=== PATIENT | male | born 1990 | race Caucasian/White ===

== ENCOUNTER 2018-03-29 16:45 | Emergency (ER) | payer OTHER ==
[~2018-03-29] VITALS: Ht 162.5 cm; Wt 51.3 kg
[~2018-03-29 16:45] MED LIST: ZOFRAN4 MG PO
[2018-03-29 17:24] LABS: BASO % 0.6 % (0.0-1.0); EOS # 0.2 10*3/uL (0.0-0.4); EOS % 4.3 % (1.0-4.0); HEMATOCRIT 41.9 % (42.0-52.0); HEMOGLOBIN 14.5 g/dl (14.0-18.0); LYMPH # 1.2 10*3/uL (1.3-4.4); LYMPH % 24.2 % (27.0-41.0); MEAN CELL VOLUME 86.2 fl (80.0-94.0); MEAN CORPUSCULAR HGB 29.8 pg (27.0-31.0); MEAN CORPUSCULAR HGB CONC 34.6 g/dl (33.0-37.0); MEAN PLATELET VOLUME 9.7 fl (9.6-12.3); MONO # 0.4 10*3/uL (0.1-1.0); MONO % 7.4 % (3.0-9.0); NEUT # 3.1 10*3/uL (2.3-7.9); NEUT % 63.3 % (47.0-73.0); PLATELET COUNT AUTOMATED 203 10*3/uL (130-400); RED BLOOD COUNT 4.86 10*6/uL (4.50-5.90); RED CELL DISTRI WIDTH 12.8 % (0-14.5); WHITE BLOOD COUNT 4.9 10*3/uL (4.8-10.8)
[2018-03-29 17:40] LABS: ALBUMIN 3.7 gm/dl (3.1-4.5); ALKALINE PHOSPHATASE 35 U/L (45-117); BUN 12 mg/dl (7-24); CHLORIDE 107 mmol/L (98-107); POTASSIUM 3.5 mmol/L (3.5-5.1); SGOT/AST 14 IU/L (3-35); SGPT/ALT 19 U/L (12-78); SODIUM 143 mmol/L (136-145); TOTAL PROTEIN 7.2 gm/dL (6.4-8.2)
== END 2018-03-29 18:51 | disposition home or self-care (01) ==
LOC: ED 16:45
PROVIDERS: Emergency Medicine
DX: B34.9 Viral infection, unspecified (principal); R73.9 Hyperglycemia, unspecified; Z88.1 Allergy status to other antibiotic agents

== ENCOUNTER 2018-07-04 18:04 | Emergency (ER) | payer SELFPAY ==
[~2018-07-04] VITALS: Ht 160 cm; Wt 47.2 kg
[2018-07-04] MEDS ORDERED: AUGMENTIN 875875 MG PO (18:59)
[2018-09-15] MEDS ORDERED: ROBAXIN500 M1 PO (19:39)
[2018-09-15] MEDS ORDERED: NAPROSYN500 MG PO (19:39)
== END 2018-07-04 19:04 | disposition home or self-care (01) ==
LOC: ED 18:04
DX: S61.210A Laceration without foreign body of right index finger without damage to nail, initial encounter (principal); F17.200 Nicotine dependence, unspecified, uncomplicated; Z88.1 Allergy status to other antibiotic agents; W26.0XXA Contact with knife, initial encounter; Y93.89 Activity, other specified; Y92.89 Other specified places as the place of occurrence of the external cause; Y99.8 Other external cause status

== ENCOUNTER 2018-07-22 11:23 | Emergency (ER) | payer SELFPAY ==
[~2018-07-22] VITALS: Ht 160 cm; Wt 46.7 kg
[~2018-07-22 11:23] MED LIST changes: +AUGMENTIN 875875 MG PO
[2018-07-22 12:20] LABS: BASO % 0.1 % (0.0-1.0); EOS # 0.1 10*3/uL (0.0-0.4); HEMATOCRIT 42.9 % (42.0-52.0); LYMPH # 0.6 10*3/uL (1.3-4.4); LYMPH % 8.5 % (27.0-41.0); MEAN CELL VOLUME 85.6 fl (80.0-94.0); MEAN CORPUSCULAR HGB 29.9 pg (27.0-31.0); MEAN PLATELET VOLUME 9.8 fl (9.6-12.3); MONO # 0.4 10*3/uL (0.1-1.0); MONO % 5.9 % (3.0-9.0); NEUT # 6.2 10*3/uL (2.3-7.9); NEUT % 84.2 % (47.0-73.0); PLATELET COUNT AUTOMATED 202 10*3/uL (130-400); RED BLOOD COUNT 5.01 10*6/uL (4.50-5.90); RED CELL DISTRI WIDTH 13.1 % (0-14.5); WHITE BLOOD COUNT 7.3 10*3/uL (4.8-10.8)
[2018-07-22 12:37] LABS: ALBUMIN 3.9 gm/dl (3.1-4.5); ALKALINE PHOSPHATASE 40 U/L (45-117); BUN 11 mg/dl (7-24); CHLORIDE 107 mmol/L (98-107); CREATININE 1.01 mg/dL (0.70-1.30); LIPASE 92 U/L (73-393); POTASSIUM 3.5 mmol/L (3.5-5.1); SGOT/AST 12 IU/L (3-35); SGPT/ALT 21 U/L (12-78); SODIUM 140 mmol/L (136-145); TOTAL PROTEIN 7.2 gm/dL (6.4-8.2)
[2018-07-22 12:39] LABS: BILIRUBIN NEGATIVE (NEGATIVE); BLOOD NEGATIVE (NEGATIVE); CLARITY CLOUDY (CLEAR); COLOR YELLOW (YELLOW); GLUCOSE NEGATIVE (NEGATIVE); KETONE NEGATIVE (NEGATIVE); LEUKO ESTERASE NEGATIVE (NEGATIVE); NITRITE NEGATIVE (NEGATIVE); PH 6.5 (5.0-9.0); SPECIFIC GRAVITY 1.025 (1.005-1.030)
[2018-07-22 12:54] LABS: BACTERIA 2+; MUCOUS 3+
[2018-07-22] MEDS ORDERED: PHENERGAN25 M3 PO (13:48)
[2018-09-15] MEDS ORDERED: ROBAXIN500 M1 PO (19:39)
[2018-09-15] MEDS ORDERED: NAPROSYN500 MG PO (19:39)
== END 2018-07-22 13:59 | disposition home or self-care (01) ==
LOC: ED 11:23
PROVIDERS: Emergency Medicine
DX: K52.9 Noninfective gastroenteritis and colitis, unspecified (principal); M79.18 Myalgia, other site; F17.200 Nicotine dependence, unspecified, uncomplicated; Z88.1 Allergy status to other antibiotic agents; Z79.2 Long term (current) use of antibiotics

== ENCOUNTER 2018-07-23 11:51 | Emergency (ER) | payer SELFPAY ==
[~2018-07-23] VITALS: Ht 152.4 cm; Wt 46.7 kg
[~2018-07-23 11:51] MED LIST changes: +PHENERGAN25 M3 PO
[2018-07-23 12:18] LABS: BASO % 0.5 % (0.0-1.0); EOS # 0.1 10*3/uL (0.0-0.4); EOS % 1.4 % (1.0-4.0); HEMATOCRIT 41.7 % (42.0-52.0); HEMOGLOBIN 14.3 g/dl (14.0-18.0); LYMPH # 0.7 10*3/uL (1.3-4.4); LYMPH % 16.9 % (27.0-41.0); MEAN CELL VOLUME 86.3 fl (80.0-94.0); MEAN CORPUSCULAR HGB 29.6 pg (27.0-31.0); MEAN CORPUSCULAR HGB CONC 34.3 g/dl (33.0-37.0); MEAN PLATELET VOLUME 9.6 fl (9.6-12.3); MONO # 0.4 10*3/uL (0.1-1.0); MONO % 9.7 % (3.0-9.0); NEUT # 3.1 10*3/uL (2.3-7.9); NEUT % 71.3 % (47.0-73.0); PLATELET COUNT AUTOMATED 173 10*3/uL (130-400); RED BLOOD COUNT 4.83 10*6/uL (4.50-5.90); RED CELL DISTRI WIDTH 13.2 % (0-14.5); WHITE BLOOD COUNT 4.3 10*3/uL (4.8-10.8)
[2018-07-23 12:34] LABS: ALBUMIN 3.3 gm/dl (3.1-4.5); ALKALINE PHOSPHATASE 42 U/L (45-117); BUN 13 mg/dl (7-24); CHLORIDE 106 mmol/L (98-107); CREATININE 1.02 mg/dL (0.70-1.30); POTASSIUM 3.4 mmol/L (3.5-5.1); SGOT/AST 13 IU/L (3-35); SGPT/ALT 17 U/L (12-78); SODIUM 137 mmol/L (136-145); TOTAL PROTEIN 6.4 gm/dL (6.4-8.2)
[2018-09-15] MEDS ORDERED: NAPROSYN500 MG PO (19:39)
[2018-09-15] MEDS ORDERED: ROBAXIN500 M1 PO (19:39)
== END 2018-07-23 13:47 | disposition home or self-care (01) ==
LOC: ED 11:51
PROVIDERS: Nurse Practitioner Family
DX: K52.9 Noninfective gastroenteritis and colitis, unspecified (principal); F17.200 Nicotine dependence, unspecified, uncomplicated; Z88.1 Allergy status to other antibiotic agents; Z79.2 Long term (current) use of antibiotics

== ENCOUNTER 2018-09-12 16:00 | Inpatient (IN) | payer BC ==
[~2018-09-12] VITALS: Ht 160 cm; Wt 50.9 kg
[2018-09-12] VITALS (7 sets, daily range): BP systolic 84–100; BP diastolic 44–59
--- NOTE | ~2018-09-12 | EKG ---
[place], [place] ELECTROCARDIOGRAM REPORT NAME: TRENT CR UNIT #: [id number] ROOM: 412 DOCTOR: DIPAK DRAFT REPORT BIRTHDATE: [birth year] [facility] Test Date: 2018-09-12 Test Time: 17:30:56 Pat Name: TRENT CR Department: Room: 412 Gender: M Muck Boss: Amy Key : 1990 Requested By: MILA BARRIENTOS PA-C Order Number: [id number] Reading MD: Ky Winter MD Measurements Intervals [place] Rate: 99 P: 83 [place]: 115 QRS: 85 QRSD: 79 T: 58 QT: 323 QTc: 415 Interpretive Statements Sinus rhythm Electronically Signed On 09-14-2018 14:16:18 PDT by Ky Winter MD CM:EKGRPT:ELECTROCARDIOGRAM REPORT [id number] MILA BARRIENTOS PA-C EPIPHANY DRAFT REPORT MILA BARRIENTOS PA-C
[2018-09-12 17:32] LABS: HEMATOCRIT 49.7 % (42.0-52.0); HEMOGLOBIN 17.2 g/dl (14.0-18.0); MEAN CELL VOLUME 85.5 fl (80.0-94.0); MEAN CORPUSCULAR HGB 29.6 pg (27.0-31.0); MEAN CORPUSCULAR HGB CONC 34.6 g/dl (33.0-37.0); MEAN PLATELET VOLUME 9.4 fl (9.6-12.3); PLATELET COUNT AUTOMATED 236 10*3/uL (130-400); RED BLOOD COUNT 5.81 10*6/uL (4.50-5.90); RED CELL DISTRI WIDTH 13.1 % (0-14.5)
[2018-09-12 17:54] LABS: ALBUMIN 4.5 gm/dl (3.1-4.5); ALKALINE PHOSPHATASE 50 U/L (45-117); BUN 17 mg/dl (7-24); CHLORIDE 104 mmol/L (98-107); CREATININE 1.23 mg/dL (0.70-1.30); LIPASE 128 U/L (73-393); POTASSIUM 3.3 mmol/L (3.5-5.1); SGOT/AST 15 IU/L (3-35); SGPT/ALT 20 U/L (12-78); SODIUM 137 mmol/L (136-145); TOTAL PROTEIN 8.5 gm/dL (6.4-8.2)
[2018-09-12 17:59] LABS: PLATELET SUFFICIENCY NORMAL (NORMAL); TOTAL CELLS COUNTED 100 #CELLS
[2018-09-12 22:59] LABS: BILIRUBIN NEGATIVE (NEGATIVE); BLOOD NEGATIVE (NEGATIVE); CLARITY SL CLOUDY (CLEAR); COLOR YELLOW (YELLOW); GLUCOSE NEGATIVE (NEGATIVE); KETONE 1+ (NEGATIVE); LEUKO ESTERASE NEGATIVE (NEGATIVE); NITRITE NEGATIVE (NEGATIVE); PH 6.5 (5.0-9.0); SPECIFIC GRAVITY <= 1.005 (1.005-1.030); UROBILINOGEN 0.2 E.U./dl (0.2-1.0)
[2018-09-12 23:05] LABS: BACTERIA 1+; EPITHELIAL CELLS 0-2; RBC 0-2 rbc/hpf (0-2); WBC 0-2 wbc/hpf (0-5)
[2018-09-12 23:08] LABS: URINE AMPHETAMINES < 1000 (1000ng/ml); URINE BARBITURATES < 200 (200ng/ml); URINE BENZODIAZEPINES < 200 (200ng/ml); URINE CANNABINOIDS (THC) < 50 (50ng/ml); URINE COCAINE < 300 (300ng/ml); URINE METHADONE < 300 (300ng/ml); URINE OPIATES < 300 (300ng/ml)
[2018-09-12 23:09] LABS: URINE PHENCYCLIDINE < 25 (25ng/ml)
[2018-09-13] VITALS (13 sets, daily range): BP systolic 85–102; BP diastolic 44–62
[2018-09-13 05:52] LABS: ALBUMIN 2.8 gm/dl (3.1-4.5); ALKALINE PHOSPHATASE 33 U/L (45-117); BUN 10 mg/dl (7-24); CHLORIDE 107 mmol/L (98-107); CHOLESTEROL 69 mg/dL (<200); FREE T4 0.93 ng/dl (0.76-1.46); HDL CHOLESTEROL 32 mg/dl (40-60); LDL CHOLESTEROL 29 mg/dL (9-159); PHOSPHOROUS 3.2 mg/dL (2.5-4.9); POTASSIUM 3.4 mmol/L (3.5-5.1); SGOT/AST 11 IU/L (3-35); SGPT/ALT 14 U/L (12-78); SODIUM 139 mmol/L (136-145); TOTAL PROTEIN 5.4 gm/dL (6.4-8.2); TRIGLYCERIDES 40 mg/dl (<150); VLDL CHOLESTEROL 8 mg/dL (6-40)
[2018-09-13 05:57] LABS: THYROID STIM HORMONE (HS) 0.866 uIU/ml (0.358-4.75)
[2018-09-13 06:12] LABS: BASO % 0.2 % (0.0-1.0); EOS % 0.3 % (1.0-4.0); LYMPH # 0.6 10*3/uL (1.3-4.4); LYMPH % 9.1 % (27.0-41.0); MEAN CELL VOLUME 88.2 fl (80.0-94.0); MEAN CORPUSCULAR HGB 29.9 pg (27.0-31.0); MEAN CORPUSCULAR HGB CONC 33.9 g/dl (33.0-37.0); MEAN PLATELET VOLUME 9.6 fl (9.6-12.3); MONO # 0.4 10*3/uL (0.1-1.0); MONO % 6.1 % (3.0-9.0); NEUT # 5.5 10*3/uL (2.3-7.9); NEUT % 84.1 % (47.0-73.0); PLATELET COUNT AUTOMATED 175 10*3/uL (130-400); RED BLOOD COUNT 4.51 10*6/uL (4.50-5.90); RED CELL DISTRI WIDTH 13.1 % (0-14.5); WHITE BLOOD COUNT 6.6 10*3/uL (4.8-10.8)
[2018-09-13 06:14] LABS: HEMATOCRIT 39.8 % (42.0-52.0); HEMOGLOBIN 13.5 g/dl (14.0-18.0)
[2018-09-13 06:43] LABS: VITAMIN D, 25-HYDROXY 23.1 ng/mL (30-100)
[2018-09-13] MEDS ORDERED: ZOFRAN4 MG PO (15:56)
[2018-09-15] MEDS ORDERED: ROBAXIN500 M1 PO (19:39)
[2018-09-15] MEDS ORDERED: NAPROSYN500 MG PO (19:39)
== END 2018-09-13 16:19 | disposition home or self-care (01) | DRG 871 ==
LOC: ED 16:00 → EDHOLD 23:53 → 4E 09-13 09:37
PROVIDERS: Physician Assistant; Student in an Organized Health Care Education/Training Program; ADMIT Internal Medicine
DX: A41.9 Sepsis, unspecified organism (principal); E43 Unspecified severe protein-calorie malnutrition; E87.2 Acidosis; Z68.1 Body mass index [BMI] 19.9 or less, adult; E86.0 Dehydration; R65.20 Severe sepsis without septic shock; F17.200 Nicotine dependence, unspecified, uncomplicated; K52.9 Noninfective gastroenteritis and colitis, unspecified; E87.6 Hypokalemia; R73.9 Hyperglycemia, unspecified; E55.9 Vitamin D deficiency, unspecified; E86.1 Hypovolemia; Z82.3 Family history of stroke; Z88.1 Allergy status to other antibiotic agents; Z71.6 Tobacco abuse counseling

== ENCOUNTER 2019-03-06 17:00 | Emergency (ER) | payer SELFPAY ==
[~2019-03-06] VITALS: Ht 160 cm; Wt 47.6 kg
[~2019-03-06 17:00] MED LIST changes: +NAPROSYN500 MG PO; +ROBAXIN500 M1 PO
[2019-03-06] MEDS ORDERED: BROMFED DM COU118 M2 PO (18:00)
== END 2019-03-06 18:15 | disposition home or self-care (01) ==
LOC: ED 17:00
DX: J06.9 Acute upper respiratory infection, unspecified (principal); F17.200 Nicotine dependence, unspecified, uncomplicated; Z88.1 Allergy status to other antibiotic agents

== ENCOUNTER 2019-03-10 14:16 | Emergency (ER) | payer SELFPAY ==
[~2019-03-10] VITALS: Ht 160 cm; Wt 47.6 kg
--- NOTE | ~2019-03-10 | EKG ---
[place], [place] ELECTROCARDIOGRAM REPORT NAME: TRENT CR UNIT #: [id number] ROOM: DOCTOR: EPIPHANY DRAFT REPORT BIRTHDATE: [birth year] [facility] Test Date: 2019-03-10 Test Time: 15:02:24 Pat Name: TRENT CR Department: Room: Gender: Sales Representative [employer]: [employer] : 1990 Requested By: ROHAN LINDO Order Number: [id number] Reading MD: Camilla Dover MD Measurements Intervals [place] Rate: 71 P: 89 [place]: 108 QRS: 87 QRSD: 84 T: 73 QT: 370 QTc: 403 Interpretive Statements Sinus rhythm Short [place] interval Compared to ECG 09/15/2018 19:05:14 No significant changes Electronically Signed On 03-12-2019 8:04:22 PDT by Camilla Dover MD CM:EKGRPT:ELECTROCARDIOGRAM REPORT [id number] ROHAN LINDO EPIPHVIVIAN DRAFT REPORT ROHAN LINDO
[~2019-03-10 14:16] MED LIST changes: +BROMFED DM COU118 M2 PO
[2019-03-10 15:12] LABS: BASO % 0.5 % (0.0-1.0); EOS # 0.1 10*3/uL (0.0-0.4); EOS % 1.3 % (1.0-4.0); HEMOGLOBIN 15.5 g/dl (14.0-18.0); LYMPH # 1.3 10*3/uL (1.3-4.4); LYMPH % 15.1 % (27.0-41.0); MEAN CELL VOLUME 84.5 fl (80.0-94.0); MEAN CORPUSCULAR HGB 29.8 pg (27.0-31.0); MEAN CORPUSCULAR HGB CONC 35.2 g/dl (33.0-37.0); MEAN PLATELET VOLUME 9.4 fl (9.6-12.3); MONO # 0.7 10*3/uL (0.1-1.0); NEUT # 6.4 10*3/uL (2.3-7.9); NEUT % 74.9 % (47.0-73.0); PLATELET COUNT AUTOMATED 260 10*3/uL (130-400); RED BLOOD COUNT 5.21 10*6/uL (4.50-5.90); WHITE BLOOD COUNT 8.5 10*3/uL (4.8-10.8)
[2019-03-10 15:29] LABS: BUN 11 mg/dl (7-24); CHLORIDE 106 mmol/L (98-107); CREATININE 1.01 mg/dL (0.70-1.30); POTASSIUM 3.4 mmol/L (3.5-5.1); SODIUM 140 mmol/L (136-145)
[2019-03-10 15:31] LABS: TROPONIN I < 0.015 ng/ml (<0.045)
[2019-03-10] MEDS ORDERED: DOXYCYCLINE100 M3 PO (16:39)
== END 2019-03-10 17:05 | disposition home or self-care (01) ==
LOC: ED 14:16
PROVIDERS: Nurse Practitioner
DX: J32.0 Chronic maxillary sinusitis (principal); F17.200 Nicotine dependence, unspecified, uncomplicated; Z88.1 Allergy status to other antibiotic agents

== ENCOUNTER 2019-06-10 10:20 | Emergency (ER) | payer SELFPAY ==
[~2019-06-10] VITALS: Ht 160 cm; Wt 47.6 kg
--- NOTE | ~2019-06-10 | EKG ---
[place], [place] ELECTROCARDIOGRAM REPORT NAME: TRENT CR UNIT #: [id number] ROOM: DOCTOR: DIPAK DRAFT REPORT BIRTHDATE: [birth year] [facility] Test Date: 2019-06-10 Test Time: 10:59:22 Pat Name: TRENT CR Department: Room: Gender: [employer]: 16 : 1990 Requested By: LORENZO PRIDE Order Number: [id number] Reading MD: Dayton Das MD Measurements Intervals [place] Rate: 73 P: 86 [place]: 117 QRS: 84 QRSD: 91 T: 52 QT: 415 QTc: 458 Interpretive Statements Sinus rhythm Borderline short [place] interval Compared to ECG 03/10/2019 15:02:24 No significant changes Electronically Signed On 06-11-2019 6:08:49 PST by Dayton Das MD CM:EKGRPT:ELECTROCARDIOGRAM REPORT [id number] LORENZO HOWARD DRAFT REPORT LORENZO PRIDE DO
[~2019-06-10 10:20] MED LIST changes: +DOXYCYCLINE100 M3 PO
[2019-06-10 11:00] LABS: BASO % 0.3 % (0.0-1.0); EOS % 0.5 % (1.0-4.0); HEMOGLOBIN 14.6 g/dl (14.0-18.0); LYMPH # 1.3 10*3/uL (1.3-4.4); LYMPH % 17.6 % (27.0-41.0); MEAN CELL VOLUME 84.5 fl (80.0-94.0); MEAN CORPUSCULAR HGB 30.1 pg (27.0-31.0); MEAN CORPUSCULAR HGB CONC 35.6 g/dl (33.0-37.0); MEAN PLATELET VOLUME 9.6 fl (9.6-12.3); MONO # 0.5 10*3/uL (0.1-1.0); MONO % 7.2 % (3.0-9.0); NEUT # 5.6 10*3/uL (2.3-7.9); NEUT % 74.1 % (47.0-73.0); PLATELET COUNT AUTOMATED 228 10*3/uL (130-400); RED BLOOD COUNT 4.85 10*6/uL (4.50-5.90); WHITE BLOOD COUNT 7.5 10*3/uL (4.8-10.8)
[2019-06-10 11:11] LABS: ACT PARTIAL THROMBO TIME 24.3 SECONDS (20.0-32.1); INTERNATIONAL NORM RATIO 1.1 (2.0-3.5)
[2019-06-10 11:22] LABS: ALKALINE PHOSPHATASE 39 U/L (45-117); BUN 9 mg/dl (7-24); CHLORIDE 108 mmol/L (98-107); CREATININE 1.22 mg/dL (0.70-1.30); LIPASE 77 U/L (73-393); POTASSIUM 3.1 mmol/L (3.5-5.1); SGOT/AST 14 IU/L (3-35); SGPT/ALT 22 U/L (12-78); SODIUM 139 mmol/L (136-145); TOTAL PROTEIN 7.1 gm/dL (6.4-8.2); TROPONIN I < 0.015 ng/ml (<0.045)
[2019-06-10] MEDS ORDERED: ATIVAN1 MG PO (13:24)
== END 2019-06-10 13:40 | disposition home or self-care (01) ==
LOC: ED 10:20
PROVIDERS: Emergency Medicine
DX: F41.0 Panic disorder [episodic paroxysmal anxiety] (principal); R42 Dizziness and giddiness; R20.0 Anesthesia of skin; H53.8 Other visual disturbances; F17.200 Nicotine dependence, unspecified, uncomplicated; Z88.1 Allergy status to other antibiotic agents; Z79.899 Other long term (current) drug therapy; Z79.2 Long term (current) use of antibiotics

== ENCOUNTER 2020-01-13 19:18 | Emergency (ER) | payer SELFPAY ==
[~2020-01-13] VITALS: Ht 160 cm; Wt 51.7 kg
[~2020-01-13 19:18] MED LIST changes: +ATIVAN1 MG PO
[2020-01-13 19:54] LABS: BASO % 0.6 % (0.0-1.0); EOS # 0.1 10*3/uL (0.0-0.4); EOS % 2.1 % (1.0-4.0); HEMATOCRIT 43.6 % (42.0-52.0); LYMPH # 1.8 10*3/uL (1.3-4.4); MEAN CELL VOLUME 82.3 fl (80.0-94.0); MEAN CORPUSCULAR HGB 28.9 pg (27.0-31.0); MEAN CORPUSCULAR HGB CONC 35.1 g/dl (33.0-37.0); MEAN PLATELET VOLUME 9.6 fl (9.6-12.3); MONO # 0.5 10*3/uL (0.1-1.0); MONO % 7.5 % (3.0-9.0); NEUT # 4.2 10*3/uL (2.3-7.9); NEUT % 62.6 % (47.0-73.0); PLATELET COUNT AUTOMATED 232 10*3/uL (130-400); RED CELL DISTRI WIDTH 13.1 % (0-14.5); WHITE BLOOD COUNT 6.6 10*3/uL (4.8-10.8)
[2020-01-13 20:11] LABS: ALKALINE PHOSPHATASE 42 U/L (45-117); BUN 16 mg/dl (7-24); CHLORIDE 110 mmol/L (98-107); CREATININE 1.11 mg/dL (0.70-1.30); LIPASE 91 U/L (73-393); POTASSIUM 3.4 mmol/L (3.5-5.1); SGOT/AST 12 IU/L (3-35); SGPT/ALT 21 U/L (12-78); SODIUM 140 mmol/L (136-145); TOTAL PROTEIN 7.4 gm/dL (6.4-8.2)
[2020-01-13 21:50] LABS: BILIRUBIN 1+ (NEGATIVE); BLOOD 1+ (NEGATIVE); CLARITY SL CLOUDY (CLEAR); COLOR YELLOW (YELLOW); GLUCOSE NEGATIVE (NEGATIVE); KETONE NEGATIVE (NEGATIVE); LEUKO ESTERASE NEGATIVE (NEGATIVE); NITRITE NEGATIVE (NEGATIVE); PH 7.5 (5.0-9.0); SPECIFIC GRAVITY 1.015 (1.005-1.030); UROBILINOGEN 0.2 E.U./dl (0.2-1.0)
[2020-01-14] MEDS ORDERED: ANAPROX DS550 MG PO (00:34)
== END 2020-01-14 00:46 | disposition home or self-care (01) ==
LOC: ED 19:18
PROVIDERS: Physician Assistant
DX: R10.32 Left lower quadrant pain (principal); F17.200 Nicotine dependence, unspecified, uncomplicated; Z88.1 Allergy status to other antibiotic agents

== ENCOUNTER 2022-05-09 08:02 | Emergency (ER) | payer SELFPAY ==
[~2022-05-09] VITALS: Ht 160 cm; Wt 52.2 kg
[~2022-05-09 08:02] MED LIST changes: +ANAPROX DS550 MG PO
[2022-05-09 08:44] LABS: BASO % 0.2 % (0.0-1.0); EOS # 0.1 10*3/uL (0.0-0.4); EOS % 0.7 % (1.0-4.0); HEMATOCRIT 43.3 % (42.0-52.0); LYMPH # 0.9 10*3/uL (1.3-4.4); LYMPH % 10.3 % (27.0-41.0); MEAN CELL VOLUME 83.9 fl (80.0-94.0); MEAN CORPUSCULAR HGB 29.8 pg (27.0-31.0); MEAN CORPUSCULAR HGB CONC 35.6 g/dl (33.0-37.0); MEAN PLATELET VOLUME 9.5 fl (9.6-12.3); MONO # 0.4 10*3/uL (0.1-1.0); MONO % 4.1 % (3.0-9.0); NEUT # 7.5 10*3/uL (2.3-7.9); NEUT % 84.4 % (47.0-73.0); PLATELET COUNT AUTOMATED 261 10*3/uL (130-400); RED BLOOD COUNT 5.16 10*6/uL (4.50-5.90); RED CELL DISTRI WIDTH 12.7 % (0-14.5); WHITE BLOOD COUNT 8.9 10*3/uL (4.8-10.8)
[2022-05-09 09:00] LABS: CHLORIDE 108 mmol/L (98-107); SODIUM 139 mmol/L (136-145)
[2022-05-09 09:03] LABS: ALKALINE PHOSPHATASE 38 U/L (45-117); BUN 19 mg/dl (7-24); CREATININE 1.11 mg/dL (0.70-1.30); SGOT/AST 11 IU/L (3-35); SGPT/ALT 19 U/L (12-78); TOTAL PROTEIN 7.4 gm/dL (6.4-8.2)
[2022-05-09 09:07] LABS: POTASSIUM 3.4 mmol/L (3.5-5.1)
[2022-05-09 09:10] LABS: BILIRUBIN Negative (Negative); BLOOD Negative (Negative); CLARITY Clear (Clear); COLOR Yellow (Yellow); GLUCOSE Negative (Negative); KETONE 3+ (Negative); LEUKO ESTERASE Trace (Negative); NITRITE Negative (Negative); SPECIFIC GRAVITY >= 1.030 (1.001-1.030)
[2022-05-09 09:47] LABS: PH 8.5 (4.5-8.0)
[2022-05-09 09:59] LABS: BACTERIA TRACE; MUCOUS TRACE; WBC 0-2 wbc/hpf (0-5)
[2022-05-09] MEDS ORDERED: Orphenadrine C100 MG PO ×2 (10:51)
[2022-05-09] MEDS ORDERED: NAPROXEN250 MG PO ×2 (10:51)
[2022-05-09] MEDS ORDERED: TYLENOL325 M1 PO ×2 (10:51)
[2022-05-09] MEDS ORDERED: PREDNISONE20 M1 PO (22:28)
[2022-05-09] MEDS ORDERED: HYDROCODONE-AC1 EAC1 PO (22:28)
== END 2022-05-09 11:05 | disposition home or self-care (01) ==
LOC: ED 08:02
PROVIDERS: Emergency Medicine
DX: M54.50 Low back pain, unspecified (principal); M54.6 Pain in thoracic spine; Z88.1 Allergy status to other antibiotic agents

== ENCOUNTER 2022-05-09 20:32 | Emergency (ER) | payer SELFPAY ==
[~2022-05-09] VITALS: Ht 160 cm; Wt 52.2 kg
[~2022-05-09 20:32] MED LIST changes: +NAPROXEN250 MG PO; +Orphenadrine C100 MG PO; +TYLENOL325 M1 PO
[2022-05-09 21:54] LABS: BILIRUBIN Negative (Negative); BLOOD Trace-Lysed (Negative); CLARITY Clear (Clear); COLOR Yellow (Yellow); GLUCOSE 3+ (Negative); KETONE Trace (Negative); LEUKO ESTERASE Negative (Negative); NITRITE Negative (Negative); SPECIFIC GRAVITY >= 1.030 (1.001-1.030)
[2022-05-09 22:04] LABS: BACTERIA 1+; MUCOUS 1+; WBC 0-2 wbc/hpf (0-5)
[2022-05-09] MEDS ORDERED: HYDROCODONE-AC1 EAC1 PO (22:28)
[2022-05-09] MEDS ORDERED: PREDNISONE20 M1 PO (22:28)
== END 2022-05-09 22:34 | disposition home or self-care (01) ==
LOC: ED 20:32
PROVIDERS: Emergency Medicine
DX: M54.6 Pain in thoracic spine (principal); Z88.1 Allergy status to other antibiotic agents

== ENCOUNTER 2022-05-12 19:33 | Inpatient (IN) | payer SELFPAY ==
[~2022-05-12] VITALS: Ht 160 cm; Wt 51.7 kg
[~2022-05-12 19:33] MED LIST changes: +HYDROCODONE-AC1 EAC1 PO; +PREDNISONE20 M1 PO
[2022-05-12 20:38] VITALS: BP 120/72
[2022-05-12 21:10] LABS: BASO % 0.1 % (0.0-1.0); EOS % 0.1 % (1.0-4.0); LYMPH # 2.2 10*3/uL (1.3-4.4); LYMPH % 17.6 % (27.0-41.0); MEAN CELL VOLUME 83.9 fl (80.0-94.0); MEAN CORPUSCULAR HGB CONC 35.8 g/dl (33.0-37.0); MEAN PLATELET VOLUME 9.5 fl (9.6-12.3); MONO # 0.8 10*3/uL (0.1-1.0); MONO % 6.4 % (3.0-9.0); NEUT # 9.3 10*3/uL (2.3-7.9); NEUT % 75.6 % (47.0-73.0); PLATELET COUNT AUTOMATED 258 10*3/uL (130-400); RED BLOOD COUNT 4.77 10*6/uL (4.50-5.90); RED CELL DISTRI WIDTH 12.9 % (0-14.5); WHITE BLOOD COUNT 12.3 10*3/uL (4.8-10.8)
[2022-05-12 21:17] VITALS: BP 114/79
[2022-05-12 21:30] LABS: ACT PARTIAL THROMBO TIME 24.2 SECONDS (20.0-32.1); INTERNATIONAL NORM RATIO 1.1 (2.0-3.5)
[2022-05-12 21:49] LABS: ALKALINE PHOSPHATASE 34 U/L (45-117); BUN 19 mg/dl (7-24); CHLORIDE 108 mmol/L (98-107); CREATININE 0.97 mg/dL (0.70-1.30); LIPASE 72 U/L (73-393); POTASSIUM 3.2 mmol/L (3.5-5.1); SGOT/AST 26 IU/L (3-35); SGPT/ALT 24 U/L (12-78); SODIUM 138 mmol/L (136-145); TOTAL PROTEIN 6.6 gm/dL (6.4-8.2)
[2022-05-12 23:50] VITALS: BP 98/66
[2022-05-13 04:08] VITALS: BP 115/69
[2022-05-13 05:26] LABS: BUN 15 mg/dl (7-24); CHLORIDE 107 mmol/L (98-107); CREATININE 1.06 mg/dL (0.70-1.30); POTASSIUM 3.9 mmol/L (3.5-5.1); SODIUM 140 mmol/L (136-145)
[2022-05-13 05:50] VITALS: BP 96/61
[2022-05-13 06:43] LABS: BASO % 0.1 % (0.0-1.0); EOS # 0.1 10*3/uL (0.0-0.4); EOS % 0.7 % (1.0-4.0); HEMATOCRIT 39.8 % (42.0-52.0); LYMPH # 1.5 10*3/uL (1.3-4.4); LYMPH % 17.6 % (27.0-41.0); MEAN CORPUSCULAR HGB 29.8 pg (27.0-31.0); MEAN CORPUSCULAR HGB CONC 34.2 g/dl (33.0-37.0); MEAN PLATELET VOLUME 9.8 fl (9.6-12.3); MONO # 0.7 10*3/uL (0.1-1.0); MONO % 8.2 % (3.0-9.0); NEUT # 6.2 10*3/uL (2.3-7.9); NEUT % 73.2 % (47.0-73.0); PLATELET COUNT AUTOMATED 225 10*3/uL (130-400); RED BLOOD COUNT 4.56 10*6/uL (4.50-5.90); RED CELL DISTRI WIDTH 13.2 % (0-14.5); WHITE BLOOD COUNT 8.4 10*3/uL (4.8-10.8)
[2022-05-13 06:53] LABS: MEAN CELL VOLUME 87.3 fl (80.0-94.0)
[2022-05-13 07:12] LABS: VITAMIN D, 25-HYDROXY 24.3 ng/mL (30-100)
[2022-05-13 14:05] VITALS: BP 96/69
[2022-05-13 16:45] VITALS: BP 105/72
[2022-05-13 23:25] VITALS: BP 136/87
[2022-05-14] VITALS: BP 136/87
[2022-05-14 07:56] LABS: HEMATOCRIT 44.8 % (42.0-52.0); MEAN CELL VOLUME 86.5 fl (80.0-94.0); MEAN CORPUSCULAR HGB 30.1 pg (27.0-31.0); MEAN CORPUSCULAR HGB CONC 34.8 g/dl (33.0-37.0); MEAN PLATELET VOLUME 9.8 fl (9.6-12.3); PLATELET COUNT AUTOMATED 280 10*3/uL (130-400); RED BLOOD COUNT 5.18 10*6/uL (4.50-5.90); RED CELL DISTRI WIDTH 12.9 % (0-14.5); WHITE BLOOD COUNT 15.4 10*3/uL (4.8-10.8)
[2022-05-14 08:00] VITALS: BP 111/72
[2022-05-14 08:09] LABS: BUN 15 mg/dl (7-24); CHLORIDE 103 mmol/L (98-107); SODIUM 136 mmol/L (136-145)
[2022-05-14 08:15] LABS: MANUAL DIFF REFLEX YES
[2022-05-14 08:22] LABS: POTASSIUM 5.4 mmol/L (3.5-5.1)
[2022-05-14 09:16] LABS: PLATELET SUFFICIENCY NORMAL (NORMAL); TOTAL CELLS COUNTED 100 #CELLS
[2022-05-14 12:00] VITALS: BP 118/67
[2022-05-14 16:00] VITALS: BP 126/75
[2022-05-14 20:00] VITALS: BP 131/85
[2022-05-15] VITALS: BP 124/80
[2022-05-15 08:00] VITALS: BP 116/79
[2022-05-15] MEDS ORDERED: PREDNISONE10 MG PO (09:50)
[2022-05-15] MEDS ORDERED: CYCLOBENZAPRINE10 MG PO (09:50)
== END 2022-05-15 11:10 | disposition home or self-care (01) | DRG 552 ==
LOC: ED 19:33 → EDHOLD 05-13 00:17 → 5E 05-13 00:17 → EDHOLD 05-13 00:17 → 5E 05-13 22:52
PROVIDERS: Family Medicine; Internal Medicine; ADMIT Emergency Medicine; ATTEND Emergency Medicine
DX: M43.16 Spondylolisthesis, lumbar region (principal); I95.89 Other hypotension; D72.829 Elevated white blood cell count, unspecified; E87.6 Hypokalemia; E87.8 Other disorders of electrolyte and fluid balance, not elsewhere classified; R73.9 Hyperglycemia, unspecified; E55.9 Vitamin D deficiency, unspecified; F17.220 Nicotine dependence, chewing tobacco, uncomplicated; I95.9 Hypotension, unspecified; Z88.1 Allergy status to other antibiotic agents; Z82.3 Family history of stroke

== ENCOUNTER 2023-07-26 11:43 | Emergency (ER) | payer OTHER ==
[~2023-07-26] VITALS: Ht 160 cm; Wt 54.4 kg
[~2023-07-26 11:43] MED LIST changes: +CYCLOBENZAPRINE10 MG PO; +PREDNISONE10 MG PO
[2023-07-26 12:16] LABS: BASO # 0.1 10*3/uL (0.0-0.1); BASO % 0.7 % (0.0-1.0); EOS # 0.1 10*3/uL (0.0-0.4); EOS % 1.8 % (1.0-4.0); HEMATOCRIT 43.7 % (42.0-52.0); LYMPH # 1.3 10*3/uL (1.3-4.4); LYMPH % 18.9 % (27.0-41.0); MEAN CELL VOLUME 84.9 fl (80.0-94.0); MEAN CORPUSCULAR HGB 29.5 pg (27.0-31.0); MEAN CORPUSCULAR HGB CONC 34.8 g/dl (33.0-37.0); MONO # 0.5 10*3/uL (0.1-1.0); MONO % 7.4 % (3.0-9.0); NEUT % 71.1 % (47.0-73.0); PLATELET COUNT AUTOMATED 255 10*3/uL (130-400); RED BLOOD COUNT 5.15 10*6/uL (4.50-5.90); RED CELL DISTRI WIDTH 12.8 % (0-14.5)
[2023-07-26 12:39] LABS: ALKALINE PHOSPHATASE 45 U/L (46-116); BUN 12 mg/dl (9-23); CHLORIDE 106 mmol/L (98-107); LIPASE 39 U/L (12-53); POTASSIUM 3.8 mmol/L (3.4-5.1); SGPT/ALT 28 U/L (5-49); TOTAL PROTEIN 7.3 gm/dL (6.0-8.0)
[2023-07-26] MEDS ORDERED: PEPCID20 MG PO (12:57)
== END 2023-07-26 13:33 | disposition home or self-care (01) ==
LOC: ED 11:43
PROVIDERS: Physician Assistant Medical
DX: K21.9 Gastro-esophageal reflux disease without esophagitis (principal); F41.9 Anxiety disorder, unspecified; Z88.1 Allergy status to other antibiotic agents; F17.210 Nicotine dependence, cigarettes, uncomplicated

== ENCOUNTER 2023-08-12 07:32 | Emergency (ER) | payer OTHER ==
[~2023-08-12] VITALS: Ht 160 cm
[~2023-08-12 07:32] MED LIST changes: +PEPCID20 MG PO
[2023-08-12 07:53] LABS: BASO % 0.3 % (0.0-1.0); EOS # 0.1 10*3/uL (0.0-0.4); EOS % 1.1 % (1.0-4.0); HEMATOCRIT 43.5 % (42.0-52.0); LYMPH # 0.9 10*3/uL (1.3-4.4); LYMPH % 7.6 % (27.0-41.0); MEAN CELL VOLUME 85.5 fl (80.0-94.0); MEAN CORPUSCULAR HGB 30.1 pg (27.0-31.0); MEAN CORPUSCULAR HGB CONC 35.2 g/dl (33.0-37.0); MEAN PLATELET VOLUME 9.4 fl (9.6-12.3); MONO # 0.6 10*3/uL (0.1-1.0); MONO % 5.1 % (3.0-9.0); NEUT # 10.2 10*3/uL (2.3-7.9); NEUT % 83.4 % (47.0-73.0); PLATELET COUNT AUTOMATED 204 10*3/uL (130-400); RED BLOOD COUNT 5.09 10*6/uL (4.50-5.90); RED CELL DISTRI WIDTH 12.9 % (0-14.5); WHITE BLOOD COUNT 12.2 10*3/uL (4.8-10.8)
[2023-08-12 08:17] LABS: VENOUS PH 7.392 (7.37-7.45)
== END 2023-08-12 09:30 | disposition short-term general hospital (02) ==
LOC: ED 07:32
PROVIDERS: Emergency Medicine
DX: T58.91XA Toxic effect of carbon monoxide from unspecified source, accidental (unintentional), initial encounter (principal); Z88.1 Allergy status to other antibiotic agents; Z72.0 Tobacco use; Y92.89 Other specified places as the place of occurrence of the external cause

== ENCOUNTER 2023-09-03 19:02 | Emergency (ER) | payer OTHER ==
[~2023-09-03] VITALS: Ht 160 cm; Wt 54.0 kg
[2023-09-03 19:26] LABS: BASO % 0.5 % (0.0-1.0); EOS # 0.2 10*3/uL (0.0-0.4); EOS % 3.1 % (1.0-4.0); HEMATOCRIT 40.9 % (42.0-52.0); LYMPH % 33.9 % (27.0-41.0); MEAN CELL VOLUME 84.2 fl (80.0-94.0); MEAN CORPUSCULAR HGB 29.2 pg (27.0-31.0); MEAN CORPUSCULAR HGB CONC 34.7 g/dl (33.0-37.0); MEAN PLATELET VOLUME 9.2 fl (9.6-12.3); MONO # 0.5 10*3/uL (0.1-1.0); MONO % 8.8 % (3.0-9.0); NEUT # 3.1 10*3/uL (2.3-7.9); NEUT % 53.5 % (47.0-73.0); PLATELET COUNT AUTOMATED 224 10*3/uL (130-400); RED BLOOD COUNT 4.86 10*6/uL (4.50-5.90); RED CELL DISTRI WIDTH 13.3 % (0-14.5); WHITE BLOOD COUNT 5.8 10*3/uL (4.8-10.8)
[2023-09-03 20:19] LABS: BUN 10 mg/dl (9-23); CHLORIDE 108 mmol/L (98-107); POTASSIUM 3.4 mmol/L (3.4-5.1)
[2023-09-03] MEDS ORDERED: CYCLOBENZAPRINE5 M3 PO (21:30)
== END 2023-09-03 21:44 | disposition home or self-care (01) ==
LOC: ED 19:02
PROVIDERS: Internal Medicine
DX: R07.89 Other chest pain (principal); Z88.1 Allergy status to other antibiotic agents

== ENCOUNTER 2023-09-21 10:09 | Emergency (ER) | payer OTHER ==
[~2023-09-21] VITALS: Ht 160 cm; Wt 54.0 kg
[~2023-09-21 10:09] MED LIST changes: +CYCLOBENZAPRINE5 M3 PO
== END 2023-09-21 11:33 | disposition home or self-care (01) ==
LOC: ED 10:09
DX: B34.9 Viral infection, unspecified (principal); Z20.822 Contact with and (suspected) exposure to COVID-19; F17.200 Nicotine dependence, unspecified, uncomplicated; Z88.1 Allergy status to other antibiotic agents; Z79.899 Other long term (current) drug therapy

== ENCOUNTER 2023-09-27 18:39 | Emergency (ER) | payer OTHER ==
[~2023-09-27] VITALS: Ht 160 cm; Wt 54.0 kg
[2023-09-27] MEDS ORDERED: Albuterol Sulf/Ipratropium 3 ML VIAL NEB ONE (19:15)
[2023-09-27] MEDS ORDERED: methylPREDNISolone sod succ 125 MG VIAL IM ONE (19:15)
[2023-09-27 19:23] LABS: BASO % 0.4 % (0.0-1.0); EOS # 0.1 10*3/uL (0.0-0.4); EOS % 1.2 % (1.0-4.0); LYMPH % 26.2 % (27.0-41.0); MEAN CELL VOLUME 83.2 fl (80.0-94.0); MEAN CORPUSCULAR HGB 28.8 pg (27.0-31.0); MEAN CORPUSCULAR HGB CONC 34.6 g/dl (33.0-37.0); MEAN PLATELET VOLUME 8.9 fl (9.6-12.3); MONO # 0.9 10*3/uL (0.1-1.0); MONO % 11.3 % (3.0-9.0); NEUT # 4.6 10*3/uL (2.3-7.9); NEUT % 60.8 % (47.0-73.0); PLATELET COUNT AUTOMATED 307 10*3/uL (130-400); RED BLOOD COUNT 4.93 10*6/uL (4.50-5.90); RED CELL DISTRI WIDTH 12.7 % (0-14.5); WHITE BLOOD COUNT 7.5 10*3/uL (4.8-10.8)
[2023-09-27 19:45] LABS: ALKALINE PHOSPHATASE 47 U/L (46-116); BUN 11 mg/dl (9-23); CHLORIDE 104 mmol/L (98-107); POTASSIUM 3.7 mmol/L (3.4-5.1); SGPT/ALT 15 U/L (5-49); TOTAL PROTEIN 7.3 gm/dL (6.0-8.0)
[2023-09-27] MEDS ORDERED: AMOX-CLAV 875-1 EACH PO (20:30)
[2023-09-27] MEDS ORDERED: BENZONATATE100 M1 PO (20:30)
[2023-09-27] MEDS ORDERED: PREDNISONE10 MG PO (20:33)
== END 2023-09-27 20:40 | disposition home or self-care (01) ==
LOC: ED 18:39
PROVIDERS: Physician Assistant Medical
DX: J32.9 Chronic sinusitis, unspecified (principal); Z20.822 Contact with and (suspected) exposure to COVID-19; J40 Bronchitis, not specified as acute or chronic; F17.200 Nicotine dependence, unspecified, uncomplicated; Z88.1 Allergy status to other antibiotic agents

== ENCOUNTER 2023-11-01 13:23 | Emergency (ER) | payer OTHER ==
[~2023-11-01] VITALS: Ht 160 cm; Wt 54.4 kg
[~2023-11-01 13:23] MED LIST changes: +AMOX-CLAV 875-1 EACH PO; +BENZONATATE100 M1 PO
[2023-11-01] MEDS ORDERED: hydrOXYzine pamoate 25 MG CAP PO ONE (13:50)
[2023-11-01] MEDS ORDERED: VISTARIL25 M2 PO (14:55)
== END 2023-11-01 14:59 | disposition home or self-care (01) ==
LOC: ED 13:23
DX: F41.9 Anxiety disorder, unspecified (principal); Z88.1 Allergy status to other antibiotic agents; Z72.0 Tobacco use

== ENCOUNTER 2023-11-04 17:11 | Emergency (ER) | payer OTHER ==
[~2023-11-04] VITALS: Ht 160 cm; Wt 54.4 kg
[~2023-11-04 17:11] MED LIST changes: +VISTARIL25 M2 PO
[2023-11-04] MEDS ORDERED: Bacitracin Zinc 14 GM TUBE T ONE (18:00)
== END 2023-11-04 18:31 | disposition home or self-care (01) ==
LOC: ED 17:11
DX: S71.111A Laceration without foreign body, right thigh, initial encounter (principal); Z88.1 Allergy status to other antibiotic agents; Z72.0 Tobacco use; W26.0XXA Contact with knife, initial encounter; Y93.89 Activity, other specified; Y92.89 Other specified places as the place of occurrence of the external cause; Y99.8 Other external cause status

== ENCOUNTER 2023-11-14 17:11 | Emergency (ER) | payer OTHER ==
[~2023-11-14] VITALS: Ht 175.2 cm; Wt 54.4 kg
== END 2023-11-14 17:34 | disposition home or self-care (01) ==
LOC: ED 17:11
DX: S71.111D Laceration without foreign body, right thigh, subsequent encounter (principal); Z88.1 Allergy status to other antibiotic agents; X58.XXXD Exposure to other specified factors, subsequent encounter

== ENCOUNTER 2024-02-25 08:50 | Emergency (ER) | payer OTHER ==
[~2024-02-25] VITALS: Ht 160 cm; Wt 50.8 kg
[2024-02-25] MEDS ORDERED: IBUPROFEN 400 MG TAB PO ONE (09:15)
[2024-02-25] MEDS ORDERED: ACETAMINOPHEN 325 MG TAB PO ONE (09:15)
== END 2024-02-25 10:48 | disposition home or self-care (01) ==
LOC: ED 08:50
DX: U07.1 COVID-19 (principal); K02.9 Dental caries, unspecified; F17.220 Nicotine dependence, chewing tobacco, uncomplicated; Z88.1 Allergy status to other antibiotic agents; F41.9 Anxiety disorder, unspecified; K21.9 Gastro-esophageal reflux disease without esophagitis

== ENCOUNTER 2024-07-31 12:30 | Emergency (ER) | payer SELFPAY ==
[~2024-07-31] VITALS: Ht 160 cm; Wt 49.9 kg
[2024-07-31] MEDS ORDERED: PREDNISONE50 MG PO (12:49)
[2024-07-31] MEDS ORDERED: DEXAMETHASONE 4 MG TAB PO ONE (12:50)
== END 2024-07-31 13:16 | disposition home or self-care (01) ==
LOC: ED 12:30
DX: M17.0 Bilateral primary osteoarthritis of knee (principal); Z88.1 Allergy status to other antibiotic agents; Z87.891 Personal history of nicotine dependence

== ENCOUNTER 2024-12-14 10:26 | Emergency (ER) | payer SELFPAY ==
[~2024-12-14] VITALS: Ht 160 cm; Wt 49.9 kg
[~2024-12-14 10:26] MED LIST changes: +PREDNISONE50 MG PO
[2024-12-14 11:46] LABS: BILIRUBIN Negative (Negative); BLOOD Trace-Lysed (Negative); CLARITY Clear (Clear); COLOR Yellow (Yellow); GLUCOSE Negative (Negative); KETONE Negative (Negative); LEUKO ESTERASE Negative (Negative); NITRITE Negative (Negative); PH 5.5 (4.5-8.0)
[2024-12-14] MEDS ORDERED: MORPHINE Sulfate 2 MG/ML SYR IV ONE (12:00)
[2024-12-14] MEDS ORDERED: Ondansetron Hydrochloride 4 MG/2 ML VIAL IV ONE (12:00)
[2024-12-14] MEDS ORDERED: SODIUM CHLORIDE 0.9% 1,000 ML IV ONE (12:00)
[2024-12-14] MEDS ORDERED: IOHEXOL 300 MG/ML 100 ML VIAL IV ONE (12:05)
[2024-12-14] MEDS ORDERED: Ketorolac Tromethamine 30 MG/ML VIAL IV ONE (12:05)
[2024-12-14 12:15] LABS: BASO % 0.4 % (0.0-1.0); EOS # 0.1 10*3/uL (0.0-0.4); EOS % 0.7 % (1.0-4.0); HEMATOCRIT 41.7 % (42.0-52.0); MEAN CELL VOLUME 84.6 fl (80.0-94.0); MEAN CORPUSCULAR HGB 29.8 pg (27.0-31.0); MEAN CORPUSCULAR HGB CONC 35.3 g/dl (33.0-37.0); MEAN PLATELET VOLUME 9.6 fl (9.6-12.3); MONO # 0.6 10*3/uL (0.1-1.0); MONO % 5.3 % (3.0-9.0); PLATELET COUNT AUTOMATED 228 10*3/uL (130-400); RED BLOOD COUNT 4.93 10*6/uL (4.50-5.90); RED CELL DISTRI WIDTH 12.5 % (0-14.5); WHITE BLOOD COUNT 10.6 10*3/uL (4.8-10.8)
[2024-12-14 12:32] LABS: MUCOUS 1+; WBC 0-2 wbc/hpf (0-5)
[2024-12-14 12:35] LABS: ALKALINE PHOSPHATASE 35 U/L (46-116); BUN 11 mg/dl (9-23); CHLORIDE 103 mmol/L (98-107); POTASSIUM 4.3 mmol/L (3.4-5.1); SGPT/ALT 14 U/L (5-49); TOTAL PROTEIN 6.9 gm/dL (6.0-8.0)
[2024-12-14] MEDS ORDERED: CIPRO500 MG PO (13:22)
[2024-12-14] MEDS ORDERED: MELOXICAM15 MG PO (13:22)
[2024-12-14] MEDS ORDERED: FLOMAX0.4 MG PO (13:22)
== END 2024-12-14 13:24 | disposition home or self-care (01) ==
LOC: ED 10:26
PROVIDERS: Internal Medicine
DX: N20.0 Calculus of kidney (principal); R11.2 Nausea with vomiting, unspecified; Z87.442 Personal history of urinary calculi; Z88.1 Allergy status to other antibiotic agents; Z79.899 Other long term (current) drug therapy; Z87.891 Personal history of nicotine dependence

== ENCOUNTER 2025-04-20 16:11 | Emergency (ER) | payer SELFPAY ==
[~2025-04-20] VITALS: Ht 160 cm; Wt 49.9 kg
[~2025-04-20 16:11] MED LIST changes: +CIPRO500 MG PO; +FLOMAX0.4 MG PO; +MELOXICAM15 MG PO
[2025-04-20] MEDS ORDERED: METHOCARBAMOL 500 MG TAB PO ONE (16:30)
[2025-04-20] MEDS ORDERED: METHOCARBAMOL750 M1 PO (17:55)
== END 2025-04-20 17:57 | disposition home or self-care (01) ==
LOC: ED 16:11
DX: S46.911A Strain of unspecified muscle, fascia and tendon at shoulder and upper arm level, right arm, initial encounter (principal); Z88.8 Allergy status to other drugs, medicaments and biological substances; X50.0XXA Overexertion from strenuous movement or load, initial encounter; Y93.89 Activity, other specified; Y92.89 Other specified places as the place of occurrence of the external cause; Y99.8 Other external cause status